=== PATIENT | female | born 1985 | race Hispanic/Latino ===

== ENCOUNTER 2025-05-04 12:33 | Emergency (ER) | payer OTHER, SELFPAY ==
[2025-05-04 13:19] VITALS: BP 112/53; PULSE 83; RESP 18; TEMP 36.6; O2SAT 100; BMI 25.6
--- NOTE | 2025-05-04 13:37 | DI.US.S_ITS ---
PROCEDURE: US OB <= 14 WEEKS FETUS INDICATIONS: vaginal bleeding OUTSIDE/PRIOR DATING DATA: First dating scan (date and location): Today. Estimated date of delivery (TREE) from first dating scan: 12/14/2025. TECHNIQUE: Real-time scanning was performed of the fetus and maternal pelvic organs, with image documentation. Endovaginal scanning was also performed to better visualize the fetus and maternal ovaries. COMPARISON: None. FINDINGS: pole is seen measuring 1.6 cm. heart motion detected at a rate of 157 beats per minute. Ultrasound age is 8 weeks. Yolk sac is present. IMPRESSION: Living intrauterine gestation with ultrasound age of 8 weeks. Dictated by: Suleman Mccoy M.D. on 05/04/2025 at 14:49 Approved by: Suleman Mccoy M.D. on 05/04/2025 at 14:50
[2025-05-04 13:48] LABS: Add Manual Diff / Slide Review NO; Basophils Absolute Auto 0 /uL (0-100); Basophils Percent Auto 0.3 % (0-2); Eosinophils Absolute Auto 100 /uL (0-450); Eosinophils Percent Auto 0.7 % (2-4); Hematocrit 38.8 % (36-46); Hemoglobin 13.2 g/dL (12.0-16.0); Lymphocytes Absolute Auto 2100 /uL (1100-4500); Monocytes Absolute Auto 1000 /uL (0-900); Monocytes Percent Auto 9.3 % (3-14); Neutrophils Absolute Auto 7400 /uL (1500-7000); Neutrophils Percent Auto 69.7 % (50-75); Platelet Count 255 X10^3/uL (150-400); Red Blood Cell Count 4.26 X10^6/uL (4.0-5.2); Red Cell Distribution Width 12.6 % (11.6-14.8); White Blood Cell Count 10.6 X10^3/uL (4.5-11.0)
[2025-05-04 14:13] LABS: Alanine Aminotransferase 19 IU/L (<35); Albumin 4.6 g/dL (3.5-5.0); Albumin Globulin Ratio 1.5 (1.0-2.8); Alkaline Phosphatase 51 U/L (38-126); Aspartate Aminotransferase 25 IU/L (14-36); BUN Creatinine Ratio 12.9 (6-22); Bilirubin Total 0.3 mg/dL (0.2-1.3); Blood Urea Nitrogen 8 mg/dL (7-17); Carbon Dioxide 26 mmol/L (22-32); Chloride 101 mmol/L (98-107); Estimated Glomerular Filt Rate > 60 mL/min (>60); Globulin 3.1 g/dL (1.7-4.1); Glucose 96 mg/dL (70-99); HEMOLYSIS < 15 (0-50); Potassium 4.2 mmol/L (3.4-5.1); Sodium 135 mmol/L (137-145); Total Protein 7.7 g/dL (6.3-8.2)
[2025-05-04 16:25] VITALS: BP 112/53; PULSE 72; O2SAT 100
[2025-05-04 17:26] VITALS: BP 137/66; PULSE 79; O2SAT 96
[2025-05-04 17:30] VITALS: BP 125/75; PULSE 79; O2SAT 99
--- NOTE | 2025-05-04 17:48 | ED.PREGNANCY ---
HPI - General Chief complaint: Vaginal Bleeding Stated complaint: abd pain, lower back pain, possible Time Seen by Provider: 05/04/25 17:38 Source: patient Mode of arrival: Ambulatory Limitations: no limitations History of Present Illness HPI Narrative: Patient is , 8 weeks . Patient LMP March 07, 2025. Patient suspected she was . Has had some vaginal spotting but not as heavy as a regular menstrual cycle. No syncope. 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 Denies any chest pain shortness of breath. Related Data Home Medications ?Medication ?Instructions ?Recorded ?Confirmed omeprazole 20 mg capsule,delayed 20 mg PO DAILY 05/05/25 05/07/25 release vitamin-ferrous sulfate tab PO 05/05/25 05/07/25 27 mg iron-folic acid 0.8 mg tablet Previous Rx's ?Medication ?Instructions ?Recorded enoxaparin 60 mg/0.6 mL 64 mg (0.64 mL) SUBCUT Q12H #6 mL 05/04/25 subcutaneous syringe Allergies Allergy/AdvReac Type Severity Reaction Status Date / Time No Known Drug Allergies Allergy Verified 05/07/25 13:42 Review of Systems Review of Systems Narrative: GENERAL: Negative chills, fatigue, malaise, fever, sweats. HEENT: Negative sinus pain, ear pain, sore throat RESPIRATORY: Negative dyspnea, cough CARDIOVASCULAR: Negative chest pain, palpitations GASTROINTESTINAL: Negative vomiting, nausea, positive back and abdominal pain : Negative dysuria, frequency, hematuria, positive vaginal spotting MUSCULOSKELETAL: Negative muscle or bony pain SKIN: Negative rash, skin lesions NEUROLOGIC: Negative weakness, numbness ROS Unobtainable: All systems reviewed & are unremarkable except as noted in HPI and below Exam Narrative Exam Narrative: GENERAL: in no distress, not toxic not dyspneic HEAD: Normocephalic. EYES: Pupils equal round ENT: Mucous membranes moist. NECK: Trachea midline. CARDIOVASCULAR: Regular rate and rhythm RESPIRATORY: Clear to auscultation. Breath sounds equal bilaterally. No wheezes, rales, or rhonchi. GASTROINTESTINAL: Abdomen soft, non-tender, no peritoneal signs bowel sounds are present no guarding no rebound. No CVA tenderness. EXTREMITIES: No gross deformities. BACK: No flank tenderness. Mild sacral/coccyx tenderness no fluctuance NEURO: AOx4. Clear speech SKIN: Warm and dry PSYCH: Not anxious, is cooperative Initial Vital Signs Initial Vital Signs: Vital Signs Temperature 97.9 F 05/04/25 13:19 Pulse Rate 83 05/04/25 13:19 Respiratory Rate 18 05/04/25 13:19 Blood Pressure 112/53 L 05/04/25 13:19 Pulse Oximetry 100 05/04/25 13:19 Oxygen Delivery Method Room Air 05/04/25 13:19 Course Orders Ordered: Discontinued Medications Enoxaparin Sodium (Enoxaparin 40 Mg/0.4 Ml Syringe) 65 mg 1 mg/kg (65 mg) SUBCUT NOW ONE Stop: 05/04/25 17:56 Last Admin: 05/04/25 18:10 Dose: 65 mg Documented By: RILEY Vital Signs Vital signs: Vital Signs - 8 hr 05/04/25 13:19 05/04/25 16:25 Temperature 97.9 F Pulse Rate 83 72 Respiratory Rate 18 Blood Pressure 112/53 L 112/53 L Pulse Oximetry 100 100 Oxygen Delivery Method Room Air Room Air MDM - OB/Uterine Contractions Lab Data 05/04/25 13:39 05/04/25 13:39 Labs: Lab Results 05/04/25 Range/Units 13:39 WBC 10.6 (4.5-11.0) X10^3/uL RBC 4.26 (4.0-5.2) X10^6/uL Hgb 13.2 (12.0-16.0) g/dL Hct 38.8 (36-46) % MCV 91.0 (80-100) fL MCH 31.0 (26-34) PG MCHC 34.0 (30-36) % RDW 12.6 (11.6-14.8) % Plt Count 255 (150-400) X10^3/uL Neut % (Auto) 69.7 (50-75) % Lymph % (Auto) 20.0 L (25-40) % Labette % (Auto) 9.3 (3-14) % Eos % (Auto) 0.7 L (2-4) % Baso % (Auto) 0.3 (0-2) % Neut # (Auto) 7400 H (1584-4892) /uL Lymph # (Auto) 2100 (1214-3935) /uL Labette # (Auto) 1000 H (0-900) /uL Eos # (Auto) 100 (0-450) /uL Baso # (Auto) 0 (0-100) /uL Sodium 135 L (137-145) mmol/L Potassium 4.2 (3.4-5.1) mmol/L Chloride 101 (98-107) mmol/L Carbon Dioxide 26 (22-32) mmol/L BUN 8 (7-17) mg/dL Creatinine 0.62 (0.52-1.04) mg/dL Estimated GFR > 60 (>60) mL/min BUN/Creatinine Ratio 12.9 (6-22) Glucose 96 (70-99) mg/dL Calcium 9.0 (8.4-10.2) mg/dL Total Bilirubin 0.3 (0.2-1.3) mg/dL AST 25 (14-36) IU/L ALT 19 (<35) IU/L Alkaline Phosphatase 51 (38-126) U/L Total Protein 7.7 (6.3-8.2) g/dL Albumin 4.6 (3.5-5.0) g/dL Globulin 3.1 (1.7-4.1) g/dL Albumin/Globulin Ratio 1.5 (1.0-2.8) HCG, Quant 048115 mIU/mL Blood Type A Positive Antibody Screen Negative Urine Dip Bedside Urine Glucose Negative Bedside Urine Bilirubin - Negative Bedside Urine Ketone - Negative Urine Specific Mclean 1.010 Bedside Urine Occult Blood - Negative Bedside Urine pH 7.0 Bedside Urine Protein - Negative Bedside Urine Urobilinogen - Negative Bedside Urine Nitrite - Negative Bedside Urine Leukocytes - Negative Esterase Imaging Data US - OB: Radiologist's Impression: [place] [address] Ultrasound Report Signed Patient: Kandace Friedman MR#: [id number] : 1985 Acct:[id number] Age/Sex: 39 / F Date of Service: 05/04/25 Loc: ED Accession Number: [id number] Procedure: US OB <= 14 weeks fetus Ordering Provider: Rolo Cage MD PROCEDURE: US OB <= 14 WEEKS FETUS INDICATIONS: vaginal bleeding OUTSIDE/PRIOR DATING DATA: First dating scan (date and location): Today. Estimated date of delivery (TREE) from first dating scan: 12/14/2025. TECHNIQUE: Real-time scanning was performed of the fetus and maternal pelvic organs, with image documentation. Endovaginal scanning was also performed to better visualize the fetus and maternal ovaries. COMPARISON: None. FINDINGS: pole is seen measuring 1.6 cm. heart motion detected at a rate of 157 beats per minute. Ultrasound age is 8 weeks. Yolk sac is present. IMPRESSION: Living intrauterine gestation with ultrasound age of 8 weeks. Dictated by: Suleman Mccoy M.D. on 05/04/2025 at 14:49 Approved by: Suleman Mccoy M.D. on 05/04/2025 at 14:50 [facility] Narrative Medical decision making narrative: Patient is , 8 weeks . Patient LMP March 07, 2025. Patient suspected she was . Has had some vaginal spotting but not as heavy as a regular menstrual cycle. No syncope. 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 Denies any chest pain shortness of breath. After history and exam, CBC CMP type and screen quantitative hCG Ob ultrasound, Ob consult MDM Medical records reviewed: No recent visit for this complaint Differential considered: Includes but not limited to threatened miscarriage ectopic Lab Test results independently reviewed as above. Pertinent findings: WBC 10.6 hemoglobin 13, quantitative hCG 170,560, a positive blood Imaging studies independently reviewed: Ultrasound OB Living IUP ultrasound age 8 weeks heart tone 157 beats per minute yolk sac is present Consultations: 5:[address] Davies, on-call for OB. There is a phone number for triage intake for OB the patient can call his office and get routed to [facility]issa to establish OB care. Patient should be transitioned to Lovenox 1 milligram/kilogram twice a day instead of Eliquis. Re-evaluations: 6:00 p.m.. Updated patient results and my discussion with OBGYN. She agrees with treatment plan. She will stop the Eliquis. Prescription for Lovenox will be provided. Discussion: Appropriate for discharge home. Exam is reassuring. Laboratory studies are reassuring ultrasound is reassuring. Ob was contacted. Prescription for Lovenox provided. She desires discharge home. Diagnosis: Threatened miscarriage Discharge Plan Departure Patient Disposition: Home Clinical Impression: Threatened Instructions: DI for Threatened Activity Restrictions/Additional Instructions: Ultrasound shows you are 8 weeks . Please discontinue Eliquis. Lovenox injections medication has been provided for you to replace this. Please call provided OBGYN office tomorrow and get coordinated to an OBGYN provider to start your care. You may take [id number] vitamins. No sexual activity. Return if worse if any questions or concerns. Prescriptions: New enoxaparin 60 mg/0.6 mL syringe 64 mg SUBCUT Q12H Qty: 6 8RF No Action vit-ferrous sulfat-FA 27 mg iron- 0.8 mg tablet PO omeprazole 20 mg capsule,delayed release(DR/EC) 20 mg PO DAILY Referrals: Mike Davies MD [Physician, Family Practice] Stand Alone Forms: Patient Portal/API
[2025-05-04 18:00] VITALS: PULSE 72; RESP 17; O2SAT 100
[2025-05-04 18:05] VITALS: BP 121/58; PULSE 90; O2SAT 100
[2025-05-04] MEDS: ENOXAPARIN 40 MG/0.4 ML SYRINGE 65 MG SUBCUT (18:10)
== END 2025-05-04 18:23 | disposition home or self-care (01) ==
PROVIDERS: Emergency Provider Emergency Medicine
DX: O20.0 Threatened abortion (principal); Z3A.08 8 weeks gestation of pregnancy; Z79.01 Long term (current) use of anticoagulants
CPT/HCPCS: 36415; 76801; 76830; 80053; 81003; 84702; 85025; 86850; 86900; 86901; 96372; 99282; 99284; J1650

== ENCOUNTER → 2025-05-07 13:56 | Outpatient (CLI) | payer OTHER, SELFPAY ==
[2025-05-07 21:17] LABS: Urine N gonorrhoeae NOT DETECTED
[2025-05-07 21:21] LABS: Urine Chlamydia NOT DETECTED
== END ==
PROVIDERS: Referring Provider Obstetrics & Gynecology; Visit Provider Obstetrics & Gynecology
DX: Z34.01 Encounter for supervision of normal first pregnancy, first trimester (principal); Z3A.08 8 weeks gestation of pregnancy
CPT/HCPCS: 87491; 87591

== ENCOUNTER → 2025-06-04 08:48 | Outpatient (CLI) | payer OTHER, SELFPAY ==
[2025-06-04 09:46] LABS: Add Manual Diff / Slide Review NO; Hematocrit 39.3 % (36-46); Hemoglobin 13.5 g/dL (12.0-16.0); Lymphocytes Absolute Auto 1800 /uL (1100-4500); Mean Corpuscular HGB Conc 34.4 % (30-36); Mean Corpuscular Hemoglobin 31.2 PG (26-34); Mean Corpuscular Volume 90.6 fL (80-100); Platelet Count 261 X10^3/uL (150-400)
[2025-06-04 09:52] LABS: INR 1.0 (0.9-1.3); Prothrombin Time 11.6 SECONDS (9.4-12.5)
[2025-06-04 10:00] LABS: Natera Collection Specimen Collected
[2025-06-04 10:32] LABS: Hepatitis B Surface Antigen NEGATIVE s/c (NEGATIVE)
[2025-06-04 10:43] LABS: HIV 1 & 2 Ab/Ag 4th Gen Combo NEGATIVE (NEGATIVE)
[2025-06-04 10:47] LABS: Hep C Virus Ab w/Reflex Quant NEGATIVE s/c (NEGATIVE)
== END ==
PROVIDERS: Referring Provider Obstetrics & Gynecology; Visit Provider Obstetrics & Gynecology
DX: O09.511 Supervision of elderly primigravida, first trimester (principal); O09.899 Supervision of other high risk pregnancies, unspecified trimester; O22.30 Deep phlebothrombosis in pregnancy, unspecified trimester; Z3A.12 12 weeks gestation of pregnancy
CPT/HCPCS: 36415; 80055; 81241; 85520; 85610; 85611; 85730; 86787; 86803; 86850; 86900; 86901; 87077; 87086; 87186; 87389

== ENCOUNTER → 2025-06-30 15:44 | Outpatient (CLI) | payer OTHER, SELFPAY | PROVIDERS: Referring Provider Obstetrics & Gynecology; Visit Provider Obstetrics & Gynecology | DX: Z34.02 Encounter for supervision of normal first pregnancy, second trimester (principal) | CPT/HCPCS: 36415; 82105 ==

== ENCOUNTER → 2025-07-23 12:43 | Outpatient (CLI) | payer OTHER, SELFPAY ==
--- NOTE | 2025-07-23 12:45 | DI.US.S_ITS ---
PROCEDURE: US OB >= 14 WEEKS FETUS INDICATIONS: anatomy scan OUTSIDE/PRIOR DATING DATA: Last menstrual period (LMP): 03/07/2025 LMP-based estimated date of delivery (TREE): 12/12/2025. First dating scan (date and location): 05/04/2025. Estimated date of delivery (TREE) from first dating scan: 12/14/2025. Working TREE is 12/13/2024 TECHNIQUE: Real-time scanning was performed of the fetus, with image documentation and biometric measurements. Endovaginal scanning: No COMPARISON: [facility], OB <= 14 WEEKS FETUS, 05/04/2025, 13:58. FINDINGS: General: A single living intrauterine gestation is present. Presentation: Transverse. Placenta: Placental position is anterior , without previa. Amniotic fluid index: 10.1 cm cm, normal range is 5-24 cm. Single deepest vertical pocket is 2.9 cm. heart rate: 128 beats per minute. Maternal cervical canal: 4 cm cm long. Normal lower limit is 2.5 cm. biometrics: Biparietal diameter: 19 weeks 2 days Head circumference: 19 weeks 4 days Abdominal circumference: 20 weeks Femur length: 19 weeks 1 day Clinically estimated gestational age: 19 weeks 5 days Composite gestational age from present scan: 19 weeks 4 days Estimated weight and percentile: 303 g; 8% of Anatomic survey: Neuro: Ventricles are non-dilated at less than 10 mm. Cisterna magna is normal at 3-11 mm. Cerebellum is normal in size and morphology. Nuchal skin fold: Normal at less than 6 mm between 14-21 weeks gestational age. Face: Suboptimally visualized. Spine: No evidence for spina bifida. Heart: 4-chambered heart is present, and cardiac outflow tracts are not well seen. Diaphragm: Diaphragm is intact. Stomach: Left-sided stomach is present. Kidneys: No hydronephrosis. Normal is less than 5 mm in 2nd trimester, less than 7 mm in 3rd trimester. Cord: 3-vessel cord has orthotopic insertion. Bladder: Normal in size. Extremities: All 4 extremities identified. IMPRESSION: 1. Single living IUP redemonstrated and interval growth is within normal limits. 2. face and cardiac outflow tracts not well seen; otherwise normal anatomic survey. Short-term follow-up recommended. We strive to produce accurate, complete, and clear reports of imaging services. To assist us in improving patient care, this report was composed using standard report templates and voice recognition software. Therefore, it may contain abnormal punctuation, insertions and/or omissions. Occasional wrong-word or sound-alike substitutions may occur. Though we review the report and make efforts to correct it, we do recommend that the report be read carefully in proper context to recognize any text inaccuracies. Dictated by: Darren JOHNSTON Interpreted: Gio Falcon MD on 07/23/2025 at 14:33 Transcribed by: LITA on 07/23/2025 at 14:37 Approved by: Gio Falcon M.D. on 07/29/2025 at 8:01
== END ==
PROVIDERS: Referring Provider Obstetrics & Gynecology; Visit Provider Emergency Medicine
DX: O09.892 Supervision of other high risk pregnancies, second trimester (principal); O09.522 Supervision of elderly multigravida, second trimester; Z3A.19 19 weeks gestation of pregnancy
CPT/HCPCS: 76811

== ENCOUNTER → 2025-09-01 08:21 | Outpatient (CLI) | payer OTHER, SELFPAY ==
[2025-09-01 09:57] LABS: Hematocrit 37.0 % (36-46); Hemoglobin 12.7 g/dL (12.0-16.0)
[2025-09-01 10:06] LABS: GTT (PREG) 1 Hour PP 50gm Dose 133 mg/dL (76-139)
== END ==
PROVIDERS: Referring Provider Obstetrics & Gynecology; Visit Provider Obstetrics & Gynecology
DX: Z13.1 Encounter for screening for diabetes mellitus (principal); Z13.0 Encounter for screening for diseases of the blood and blood-forming organs and certain disorders involving the immune mechanism
CPT/HCPCS: 36415; 82950; 85014; 85018

== ENCOUNTER → 2025-10-26 07:54 | Outpatient (CLI) | payer OTHER, SELFPAY ==
--- NOTE | 2025-10-26 07:56 | DI.US.S_ITS ---
PROCEDURE: US OB FOLLOW UP INDICATIONS: LLOW LYING PLACENTA/GROWTH. AMA. OUTSIDE/PRIOR DATING DATA: Last menstrual period (LMP): 03/07/2025 LMP-based estimated date of delivery (TREE): 12/12/2025. First dating scan (date and location): 05/04/2025. Estimated date of delivery (TREE) from first dating scan: 12/14/2025 Working TREE is 12/13/2025. TECHNIQUE: Real-time scanning was performed of the fetus, with image documentation and biometric measurements. Endovaginal scanning: No COMPARISON: None. FINDINGS: General: A single living intrauterine gestation is present. Presentation: Breech. Placenta: Placental position is anterior , without previa. Amniotic fluid index: 21.7 cm, normal range is 5-24 cm. Single deepest vertical pocket is 7.2 cm. heart rate: 157 beats per minute. Maternal cervical canal: 3.1 cm long. Normal lower limit is 2.5 cm. biometrics: Biparietal diameter: 35 weeks 6 days Head circumference: 36 weeks 1 day Abdominal circumference: 35 weeks 1 day Femur length: 31 weeks, 3rd percentile for age. Clinically estimated gestational age: 33 weeks 2 days Composite gestational age from present scan: 34 weeks 4 days Estimated weight and percentile: 2380 g; 71st percentile Other: Not applicable. IMPRESSION: 1. Single living IUP redemonstrated and interval growth overall within normal limits with estimated weight 71st percentile. Femur length is less than the 3rd percentile for age which may be constitutional. 2. No placenta previa. We strive to produce accurate, complete, and clear reports of imaging services. To assist us in improving patient care, this report was composed using standard report templates and voice recognition software. Therefore, it may contain abnormal punctuation, insertions and/or omissions. Occasional wrong-word or sound-alike substitutions may occur. Though we review the report and make efforts to correct it, we do recommend that the report be read carefully in proper context to recognize any text inaccuracies. Dictated by: Darren JOHNSTON Interpreted: Ha Cason MD on 10/26/2025 at 9:42 Transcribed by: BRIE on 10/26/2025 at 9:46 Approved by: Ha Cason M.D. on 10/26/2025 at 13:15
== END ==
LOC: US 07:55
PROVIDERS: Visit Provider Obstetrics & Gynecology
DX: O09.523 Supervision of elderly multigravida, third trimester (principal); O09.893 Supervision of other high risk pregnancies, third trimester; Z3A.34 34 weeks gestation of pregnancy
CPT/HCPCS: 76816

== ENCOUNTER → 2025-11-09 12:05 | Outpatient (CLI) | payer OTHER, SELFPAY ==
[2025-11-10 13:31] LABS: Strep Grp B PCR NEG for Grp B Strep
== END ==
PROVIDERS: Referring Provider Obstetrics & Gynecology; Visit Provider Obstetrics & Gynecology
DX: O09.899 Supervision of other high risk pregnancies, unspecified trimester (principal); Z3A.36 36 weeks gestation of pregnancy
CPT/HCPCS: 87653